=== PATIENT | female | born 1970 | race Caucasian/White ===

== ENCOUNTER 2019-12-15 18:51 | Emergency (ER) | payer SELFPAY, OTHER ==
[~2019-12-15] VITALS: Ht 165.1 cm; Wt 50.0 kg
== END 2019-12-15 20:36 | disposition home or self-care (01) ==
LOC: ER 18:52
DX: R50.9 Fever, unspecified (principal); G89.29 Other chronic pain; R06.02 Shortness of breath; R53.81 Other malaise; Z98.890 Other specified postprocedural states
CPT/HCPCS: 36415; 71045; 99284; U0003

== ENCOUNTER 2020-11-14 11:41 | Inpatient (IN) | payer BC ==
[~2020-11-14] VITALS: Ht 162.6 cm; Wt 46.8 kg
[2020-11-14 12:10] LABS: CLARITY,URINE CLEAR (Clear); COLOR,URINE YELLOW (Yellow); GLUCOSE, URINE NEGATIVE (Neg); KETONES,URINE NEGATIVE (Neg); LEUKOCYTE ESTERASE ,URINE NEGATIVE (Neg); NITRITES, URINE POSITIVE (Neg); OCCULT BLOOD,URINE SMALL (Neg); PH,URINE 5.5 (4.8-8.0); PROTEIN,URINE NEGATIVE (Neg); UROBILINOGEN,URINE 0.2 E.U/dL (0.2-1.0)
[2020-11-14 12:13] LABS: UA COLLECTION TYPE CLN CATCH MIDSTREAM
[2020-11-14 12:15] LABS: BACTERIA,URINE 2+ /HPF (Neg); MUCUS STRANDS NONE SEEN /LPF (Neg); RBC,URINE 0-2 /HPF (0-2); SQUAMOUS EPITHELIAL CELL,UR MANY /LPF (FEW); WBC,URINE NONE SEEN /HPF (0-4)
[2020-11-14] MEDS ORDERED: morphine 4 MG/ML inj SYRINge IV PRN (12:40)
[2020-11-14] MEDS ORDERED: normal saline 1000ML IV soln IVB ONE (12:40)
[2020-11-14] MEDS ORDERED: ondansetron/PF 4mg/2ml inj IV ONE (12:40)
[2020-11-14 12:44] LABS: BASOPHILS # (AUTO) 0.1 X10'3 (0-0.2); BASOPHILS % (AUTO) 0.5 % (0-1); EOSINOPHILS # (AUTO) 0.1 X10'3 (0-0.9); HEMOGLOBIN 14.5 g/dl (12.0-16.0); LYMPHOCYTES % (AUTO) 16.9 % (21-51); MEAN CORPUSCULAR HEMOGLOBIN 30.9 PG (27.0-31.0); MEAN CORPUSCULAR HGB CONC 33.8 g/dL (33.0-36.5); MEAN CORPUSCULAR VOLUME 91.4 FL (78-98); MONOCYTES # (AUTO) 0.9 X10'3 (0-0.9); MONOCYTES % (AUTO) 7.2 % (2-12); NEUTROPHILS % (AUTO) 74.4 % (42-75); PLATELET COUNT 194 X10'3 (140-440); RED CELL DISTRIBUTION WIDTH 15.3 % (11.5-14.5); WHITE BLOOD COUNT 12.1 X10'3 (4.5-11.0)
[2020-11-14 12:55] LABS: ALANINE AMINOTRANSFERASE 15 U/L (12-78); ALBUMIN 3.4 G/DL (3.4-5.0); ALBUMIN/GLOBULIN RATIO 0.9 (1.1-1.5); ALKALINE PHOSPHATASE 97 IU/L (46-116); ANION GAP 13 (8-16); ASPARTATE AMINO TRANSFERASE 11 U/L (10-37); BILIRUBIN,TOTAL 0.5 MG/DL (0.1-1.0); BLOOD UREA NITROGEN 7 MG/DL (7-18); BUN/CREATININE RATIO 10.1 (6.6-38.0); CALCIUM 8.6 MG/DL (8.5-10.1); CHLORIDE 102 MMOL/L (99-107); CREATININE 0.69 MG/DL (0.40-0.90); GLUCOSE 131 MG/DL (70-104); LIPASE < 50 U/L (73-393); POTASSIUM 3.9 MMOL/L (3.5-5.1); SODIUM 140 MMOL/L (135-145); TOTAL CARBON DIOXIDE 25.3 MMOL/L (24-32); eGFR 90 ML/MIN
[2020-11-14] MEDS ORDERED: iohexol 300mg/ml 100ml inj. ONE (13:03)
[2020-11-14] MEDS ORDERED: metroNIDAZOLE-Flagyl 500mg/NS 100 ML IV STA (15:01)
[2020-11-14] MEDS ORDERED: metoclopramide 5 mg/ml inj IV PRN (15:30)
[2020-11-14] MEDS ORDERED: acetaminophen 325mg tablet PO PRN ×2 (15:30)
[2020-11-14] MEDS ORDERED: ondansetron/PF 4mg/2ml inj IV PRN (15:30)
[2020-11-14] MEDS ORDERED: potassium Cl 40MEQ/1/2NS 520ml 520 ML IV PRN ×2 (15:30)
[2020-11-14] MEDS ORDERED: HYDROmorphone inj. 0.5 MG/0.5 ML DISP.SYRIN IV PRN (15:30)
[2020-11-14] MEDS ORDERED: mag hydrox/Alum hydrox/simeth 30ml oral suspension PO PRN (15:30)
[2020-11-14] MEDS ORDERED: potassium Cl 20 mEq SR tablet PO PRN ×2 (15:30)
[2020-11-14] MEDS ORDERED: bisacodyl 10mg suppository rectal RC PRN (15:30)
[2020-11-14] MEDS ORDERED: HYDROcodone/acetaminophen 5mg/325mg tablet PO PRN (15:30)
[2020-11-14] MEDS ORDERED: magnesium 4gm in 100ml NS 100 ML IV PRN (15:30)
[2020-11-14] MEDS ORDERED: magnesium 2GM in 50ml NS 50 ML IV PRN (15:30)
[2020-11-14] MEDS ORDERED: magnesium hydroxide 30ml (MOM) UD suspension PO PRN (15:30)
[2020-11-14] MEDS ORDERED: magnesium Cl slow-release 64mg tablet PO PRN (15:30)
[2020-11-14] MEDS ORDERED: BACL10TA2 PO (15:32)
[2020-11-14] MEDS ORDERED: MORP30TA PO (15:32)
[2020-11-14] MEDS: normal saline 1000ml 1,000 ML IV SCH (15:44)
[2020-11-14 16:49] VITALS: BP 121/70
[2020-11-14] MEDS ORDERED: HYDROmorphone 1 mg/ml syringe IV PRN (17:10)
[2020-11-14] MEDS ORDERED: nicotine 14mg patch - 24hr TD ONE (17:10)
[2020-11-14] MEDS: ciprofloxacin lact 400MG/200ML 200 ML IV SCH (17:16)
--- NOTE | 2020-11-14 18:49 | NUR ---
Patient in room [facility]. I have received report from NOELLE GARZA and had the opportunity to ask questions and assume patient care. Addendum: 11/14/20 at 1849 by Bety Wesley RN Amended: Links added.
[2020-11-14 19:20] VITALS: BP 113/72
[2020-11-14] MEDS ORDERED: ciprofloxacin lact 400MG/200ML 200 ML IV SCH (20:00)
[2020-11-14] MEDS: K and/or MAG REPLACEMENT MC SCH (20:00)
[2020-11-14] MEDS ORDERED: temazepam 15mg capsule PO PRN (21:00)
[2020-11-14] MEDS: lactobacillus rhamnosus 10,000 MMU CELLS/CAPSULE PO SCH (21:19)
[2020-11-14] MEDS: dicyclomine 10 MG capsule PO PRN ×2 (21:19→21:22)
[2020-11-14] MEDS: heparin, porcine 5000 units/ml vial SQ SCH (21:20)
[2020-11-14] MEDS: morphine IR (immed. release) 30mg tablet PO SCH (21:32)
[2020-11-14 22:15] LABS: URINE HCG NEGATIVE (NEG)
[2020-11-15] VITALS: BP 106/70
[2020-11-15] MEDS: metroNIDAZOLE-Flagyl 500mg/NS 100 ML IV SCH ×4 (00:53→23:52)
[2020-11-15] MEDS: normal saline 1000ml 1,000 ML IV SCH ×3 (04:29→19:48)
[2020-11-15 06:24] LABS: BASOPHILS # (AUTO) 0.1 X10'3 (0-0.2); BASOPHILS % (AUTO) 1.4 % (0-1); EOSINOPHILS # (AUTO) 0.1 X10'3 (0-0.9); HEMATOCRIT 38.5 % (35.0-45.0); HEMOGLOBIN 13.1 g/dl (12.0-16.0); LYMPHOCYTES # (AUTO) 1.5 X10'3 (1.1-4.8); LYMPHOCYTES % (AUTO) 14.7 % (21-51); MEAN CORPUSCULAR HEMOGLOBIN 31.3 PG (27.0-31.0); MEAN CORPUSCULAR VOLUME 91.9 FL (78-98); MEAN PLATELET VOLUME 9.6 FL (7.4-10.4); MONOCYTES # (AUTO) 0.5 X10'3 (0-0.9); MONOCYTES % (AUTO) 4.9 % (2-12); PLATELET COUNT 175 X10'3 (140-440); RED BLOOD COUNT 4.19 X10'6 (4.20-5.60); RED CELL DISTRIBUTION WIDTH 14.8 % (11.5-14.5); WHITE BLOOD COUNT 10.2 X10'3 (4.5-11.0)
--- NOTE | 2020-11-15 06:47 | NUR ---
Problems reprioritized. Patient report given, questions answered & plan of care reviewed with JACKIE GARZA. Addendum: 11/15/20 at 0647 by Bety Wesley RN Amended: Links added.
--- NOTE | 2020-11-15 06:55 | NUR ---
Patient in room [facility]. I have received report from Mayuri GARZA and had the opportunity to ask questions and assume patient care.
[2020-11-15 06:56] LABS: ALANINE AMINOTRANSFERASE 20 U/L (12-78); ALBUMIN 2.9 G/DL (3.4-5.0); ALBUMIN/GLOBULIN RATIO 0.9 (1.1-1.5); ANION GAP 9 (8-16); ASPARTATE AMINO TRANSFERASE 8 U/L (10-37); BILIRUBIN,TOTAL 0.4 MG/DL (0.1-1.0); BLOOD UREA NITROGEN 7 MG/DL (7-18); BUN/CREATININE RATIO 11.5 (6.6-38.0); CALCIUM 8.2 MG/DL (8.5-10.1); CHLORIDE 106 MMOL/L (99-107); CREATININE 0.61 MG/DL (0.40-0.90); GLUCOSE 99 MG/DL (70-104); MAGNESIUM 1.8 MG/DL (1.5-2.4); POTASSIUM 4.1 MMOL/L (3.5-5.1); SODIUM 140 MMOL/L (135-145); TOTAL PROTEIN 6.1 G/DL (6.4-8.2); eGFR > 90 ML/MIN
[2020-11-15 07:00] VITALS: BP 103/69
[2020-11-15 08:00] LABS: ALKALINE PHOSPHATASE 81 IU/L (46-116)
[2020-11-15] MEDS: heparin, porcine 5000 units/ml vial SQ SCH ×2 (08:00→20:00)
[2020-11-15] MEDS: K and/or MAG REPLACEMENT MC SCH ×2 (08:00→20:00)
[2020-11-15] MEDS: lactobacillus rhamnosus 10,000 MMU CELLS/CAPSULE PO SCH ×2 (08:25→20:28)
[2020-11-15] MEDS: nicotine 14mg patch - 24hr TD SCH (08:26)
[2020-11-15] MEDS: morphine IR (immed. release) 30mg tablet PO SCH ×2 (08:27→20:28)
[2020-11-15] MEDS: ciprofloxacin lact 400MG/200ML 200 ML IV SCH ×2 (08:27→20:28)
[2020-11-15 10:31] LABS: C DIFF ANTIGEN NEGATIVE (NEGATIVE); C DIFF SPECIMEN=DIARRHEA? ACCEPTABLE; C DIFFICILE TOXINS A&B NEGATIVE (Neg)
[2020-11-15 11:00] VITALS: BP 112/72
[2020-11-15] MEDS ORDERED: MSC30T PO (14:05)
[2020-11-15] MEDS ORDERED: HYDR-3972 PO (14:05)
[2020-11-15] MEDS: HYDROcodone/acetaminophen 10/325mg tab PO PRN ×2 (15:18→23:59)
--- NOTE | 2020-11-15 16:17 | NUR ---
Malnutrition Consult: Pt admit DX diffuse colitis, chronic pain syndrome, and c.diff results negative per EMR. Pt hx frequent diarrhea/abdominal pain since 3 days [employer] as well as familial hyperlipidemia/hypertrophic dyslipidemia requiring low-fat diet per MD note. Current BMI 17.7 via chair scaled wt this admit. 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 Pt appears thin w/ visible temporal wasting present however no other signs of muscle/fat wasting and likely maintains stable low wt status given pt reported hx. Current wt 103 pounds per chair scale this admit w/ 2 pound loss likely r/t DX. Pt has no edema/wounds, no significant weakness, and lacks minimum two malnutrition criteria at this time. PO 25% avg first clear liquid diet meal. Will monitor for PO diet advancement, tolerance, and further malnutrition criteria this admit. Addendum: 11/15/20 at [address] Amended: Links added.
--- NOTE | 2020-11-15 18:25 | NUR ---
Problems reprioritized. Patient report given, questions answered & plan of care reviewed with Mayuri GARZA.
--- NOTE | 2020-11-15 18:36 | NUR ---
Problems reprioritized. Patient report given, questions answered & plan of care reviewed with Mayuri GARZA.
--- NOTE | 2020-11-15 18:57 | NUR ---
Patient in room [facility]. I have received report from JACKIE GARZA and had the opportunity to ask questions and assume patient care. Addendum: 11/15/20 at 1857 by Bety Wesley RN Amended: Links added.
--- NOTE | 2020-11-15 19:04 | NUR ---
Patient in room [facility]. I have received report from JACKIE GARZA and had the opportunity to ask questions and assume patient care. Addendum: 11/15/20 at 1905 by Bety Wesley RN Amended: Links added.
[2020-11-15 20:00] VITALS: BP 109/77
[2020-11-15] MEDS: dicyclomine 10 MG capsule PO PRN (20:41)
[2020-11-16] VITALS: BP 118/74
--- NOTE | 2020-11-16 | NUR ---
MEDICATED FOR ABD AND RECTAL & RIGHT SHOULDER PAIN.
--- NOTE | 2020-11-16 04:54 | NUR ---
resting without changes.
--- NOTE | 2020-11-16 06:32 | NUR ---
Problems reprioritized. Patient report given, questions answered & plan of care reviewed with REECE GARZA. Addendum: 11/16/20 at 0632 by Bety Wesley RN Amended: Links added.
[2020-11-16 06:41] LABS: BASOPHILS % (AUTO) 0.7 % (0-1); EOSINOPHILS # (AUTO) 0.1 X10'3 (0-0.9); EOSINOPHILS % (AUTO) 1.9 % (0-6); HEMATOCRIT 36.3 % (35.0-45.0); HEMOGLOBIN 12.2 g/dl (12.0-16.0); LYMPHOCYTES # (AUTO) 1.8 X10'3 (1.1-4.8); LYMPHOCYTES % (AUTO) 27.5 % (21-51); MEAN CORPUSCULAR HGB CONC 33.5 g/dL (33.0-36.5); MEAN CORPUSCULAR VOLUME 92.5 FL (78-98); MEAN PLATELET VOLUME 9.3 FL (7.4-10.4); MONOCYTES # (AUTO) 0.5 X10'3 (0-0.9); MONOCYTES % (AUTO) 7.1 % (2-12); NEUTROPHILS # (AUTO) 4.1 X10'3 (1.8-7.7); NEUTROPHILS % (AUTO) 62.8 % (42-75); PLATELET COUNT 173 X10'3 (140-440); RED BLOOD COUNT 3.92 X10'6 (4.20-5.60); RED CELL DISTRIBUTION WIDTH 14.8 % (11.5-14.5); WHITE BLOOD COUNT 6.5 X10'3 (4.5-11.0)
[2020-11-16 06:57] LABS: ALANINE AMINOTRANSFERASE 15 U/L (12-78); ALBUMIN 2.8 G/DL (3.4-5.0); ALKALINE PHOSPHATASE 70 IU/L (46-116); ANION GAP 8 (8-16); ASPARTATE AMINO TRANSFERASE 8 U/L (10-37); BILIRUBIN,TOTAL 0.4 MG/DL (0.1-1.0); BLOOD UREA NITROGEN 9 MG/DL (7-18); BUN/CREATININE RATIO 14.3 (6.6-38.0); CALCIUM 8.1 MG/DL (8.5-10.1); CHLORIDE 108 MMOL/L (99-107); CREATININE 0.63 MG/DL (0.40-0.90); GLUCOSE 89 MG/DL (70-104); MAGNESIUM 1.9 MG/DL (1.5-2.4); POTASSIUM 3.8 MMOL/L (3.5-5.1); SODIUM 142 MMOL/L (135-145); TOTAL CARBON DIOXIDE 25.7 MMOL/L (24-32); TOTAL PROTEIN 5.7 G/DL (6.4-8.2); eGFR > 90 ML/MIN
[2020-11-16 07:40] VITALS: BP 129/82
[2020-11-16] MEDS: K and/or MAG REPLACEMENT MC SCH ×2 (08:00→20:00)
[2020-11-16] MEDS: heparin, porcine 5000 units/ml vial SQ SCH ×2 (08:00→20:00)
[2020-11-16] MEDS: lactobacillus rhamnosus 10,000 MMU CELLS/CAPSULE PO SCH ×2 (08:02→20:42)
[2020-11-16] MEDS: metroNIDAZOLE-Flagyl 500mg/NS 100 ML IV SCH (08:02)
[2020-11-16] MEDS: nicotine 14mg patch - 24hr TD SCH (08:03)
[2020-11-16] MEDS: morphine IR (immed. release) 30mg tablet PO SCH ×2 (08:03→20:42)
[2020-11-16] MEDS: ciprofloxacin lact 400MG/200ML 200 ML IV SCH (09:36)
[2020-11-16] MEDS: HYDROcodone/acetaminophen 10/325mg tab PO PRN ×2 (09:40→13:37)
[2020-11-16 11:54] VITALS: BP 110/70
[2020-11-16] MEDS: normal saline 1000ml 1,000 ML IV SCH (16:38)
[2020-11-16] MEDS: metroNIDAZOLE 500mg tablet PO SCH (16:38)
--- NOTE | 2020-11-16 18:10 | NUR ---
Problems reprioritized. Patient report given, questions answered & plan of care reviewed with FRANCISCO Westfall RN.
--- NOTE | 2020-11-16 18:13 | NUR ---
Patient in room [facility]. I have received report from KAYLA Lopez and had the opportunity to ask questions and assume patient care.
[2020-11-16 19:00] VITALS: BP 94/51
[2020-11-16] MEDS: ciprofloxacin 250mg tablet PO SCH (20:42)
[2020-11-16 23:27] VITALS: BP 101/65
[2020-11-17] MEDS: metroNIDAZOLE 500mg tablet PO SCH ×2 (00:40→07:12)
[2020-11-17] MEDS: normal saline 1000ml 1,000 ML IV SCH (06:00)
--- NOTE | 2020-11-17 06:36 | NUR ---
Problems reprioritized. Patient report given, questions answered & plan of care reviewed with KAYLA Banegas.
--- NOTE | 2020-11-17 06:44 | NUR ---
Patient in room [facility]. I have received report from Edin GARZA and had the opportunity to ask questions and assume patient care.
[2020-11-17 06:52] LABS: BASOPHILS # (AUTO) 0.1 X10'3 (0-0.2); BASOPHILS % (AUTO) 1.1 % (0-1); EOSINOPHILS # (AUTO) 0.1 X10'3 (0-0.9); EOSINOPHILS % (AUTO) 2.3 % (0-6); HEMATOCRIT 39.7 % (35.0-45.0); HEMOGLOBIN 13.4 g/dl (12.0-16.0); LYMPHOCYTES # (AUTO) 1.6 X10'3 (1.1-4.8); MEAN CORPUSCULAR HGB CONC 33.7 g/dL (33.0-36.5); MONOCYTES # (AUTO) 0.3 X10'3 (0-0.9); NEUTROPHILS # (AUTO) 3.1 X10'3 (1.8-7.7); NEUTROPHILS % (AUTO) 59.6 % (42-75); PLATELET COUNT 205 X10'3 (140-440); RED BLOOD COUNT 4.32 X10'6 (4.20-5.60); RED CELL DISTRIBUTION WIDTH 14.8 % (11.5-14.5); WHITE BLOOD COUNT 5.2 X10'3 (4.5-11.0)
[2020-11-17 07:00] VITALS: BP 122/68
[2020-11-17] MEDS: morphine IR (immed. release) 30mg tablet PO SCH (07:11)
[2020-11-17] MEDS: lactobacillus rhamnosus 10,000 MMU CELLS/CAPSULE PO SCH (07:12)
[2020-11-17] MEDS: nicotine 14mg patch - 24hr TD SCH (07:12)
[2020-11-17] MEDS: ciprofloxacin 250mg tablet PO SCH (07:12)
[2020-11-17] MEDS: heparin, porcine 5000 units/ml vial SQ SCH (07:13)
[2020-11-17 07:39] LABS: ALANINE AMINOTRANSFERASE 17 U/L (12-78); ALBUMIN 3.3 G/DL (3.4-5.0); ALKALINE PHOSPHATASE 84 IU/L (46-116); ANION GAP 11 (8-16); ASPARTATE AMINO TRANSFERASE 14 U/L (10-37); BILIRUBIN,TOTAL 0.4 MG/DL (0.1-1.0); BLOOD UREA NITROGEN 8 MG/DL (7-18); BUN/CREATININE RATIO 11.4 (6.6-38.0); CALCIUM 8.7 MG/DL (8.5-10.1); CHLORIDE 106 MMOL/L (99-107); GLUCOSE 100 MG/DL (70-104); MAGNESIUM 2.1 MG/DL (1.5-2.4); SODIUM 143 MMOL/L (135-145); TOTAL CARBON DIOXIDE 26.5 MMOL/L (24-32); TOTAL PROTEIN 6.7 G/DL (6.4-8.2); eGFR 89 ML/MIN
[2020-11-17] MEDS: K and/or MAG REPLACEMENT MC SCH (08:00)
[2020-11-17] MEDS ORDERED: METR500T PO (10:57)
[2020-11-17] MEDS ORDERED: CIPR250T4 PO (10:57)
[2020-11-17] MEDS ORDERED: HYDR-3972 PO (10:57)
--- NOTE | 2020-11-17 12:36 | NUR ---
PATIENT UP AND ABOUT IN ROOM C/O VERY SORE RIGHT SHOULDER CHRONIC PAIN . MEDICATED X1 WITH EFFECT. SEEN BY DR GUAMAN IS FOR DISCHARGE. ALL DISCHARGE INSTRUCTIONS GIVEN TO PATIENT AND SPOUSE. PATIENT DC HOME VIA PRIVATE CAR WITH SPOUSE IN STABLE CONDITION.
== END 2020-11-17 12:20 | disposition home or self-care (01) | DRG 392 ==
LOC: ER 11:42 → ED HOLD 15:29 → SUR 3N 16:34
PROVIDERS: ADMIT Family Medicine; ATTEND Family Medicine
DX: A09 Infectious gastroenteritis and colitis, unspecified (principal); E78.1 Pure hyperglyceridemia; F17.210 Nicotine dependence, cigarettes, uncomplicated; E78.49 Other hyperlipidemia; G89.4 Chronic pain syndrome; Z90.710 Acquired absence of both cervix and uterus; Z71.6 Tobacco abuse counseling
CPT/HCPCS: 36415; 74177; 80053; 81001; 81025; 83605; 83690; 83735; 84145; 85025; 87045; 87046; 87081; 87324; 87449; 89055; 96374; 96375; 99285; G0378; J0744; J1170; J1644; J2270; J2405; J3490; J7030; Q9967